=== PATIENT | male | born 1995 | race Caucasian/White ===

== ENCOUNTER 2021-02-10 18:53 | Emergency (ER) | payer SELFPAY ==
[~2021-02-10] VITALS: Ht 175.3 cm; Wt 118.2 kg
[2021-02-10 19:10] VITALS: TEMP 98.3
[2021-02-10 20:42] VITALS: BP 124/75; PULSE 76
== END 2021-02-10 20:42 | disposition home or self-care (01) ==
LOC: COL.ER 18:53
DX: S20.212A Contusion of left front wall of thorax, initial encounter (principal); Z88.0 Allergy status to penicillin; Z88.1 Allergy status to other antibiotic agents; W10.9XXA Fall (on) (from) unspecified stairs and steps, initial encounter